=== PATIENT | male | born 1975 | race Two or more races ===

== ENCOUNTER 2016-12-11 13:03 | Emergency (ER) | payer OTHER ==
[~2016-12-11] VITALS: Ht 165.1 cm; Wt 68.0 kg
[2016-12-11 13:18] VITALS: BP 143/94
== END 2016-12-11 14:08 | disposition home or self-care (01) ==
LOC: ER 13:04
DX: R51 Headache (principal); M25.511 Pain in right shoulder; V43.52XA Car driver injured in collision with other type car in traffic accident, initial encounter; Y92.410 Unspecified street and highway as the place of occurrence of the external cause; Y93.89 Activity, other specified; Y99.8 Other external cause status
CPT/HCPCS: 99281; A4606; Z7610; Z7502